=== PATIENT | male | born 1950 | race American Indian/Alaskan Native ===

== ENCOUNTER 2019-10-05 16:57 | Observation (INO) | payer MEDICARE, OTHER ==
--- NOTE | 2019-10-05 19:08 | Event Note ---
ED Screening Note Date of service: 10/05/19 Time: 19:04 ED Screening Note: 69 yo male presents to ED cc of swelling and pain to his feet pt is a pt of the wound clinic at [facility] but states EMS brought him here pt also cc of bleeding and pain to wound This initial assessment/diagnostic orders/clinical plan/treatment(s) is/are subject to change based on patients health status, clinical progression and re- assessment by fellow clinical providers in the ED. Further treatment and workup at subsequent clinical providers discretion. Patient/guardian urged not to elope from the ED as their condition may be serious if not clinically assessed and managed. Initial orders include: main side eval
[2019-10-05 21:00] LABS: BUN/Creatinine Ratio 13; Blood Urea Nitrogen 106 mg/dL (9-20); Calcium 7.4 mg/dL (8.4-10.2); Hemolysis Index 210
[2019-10-05] MEDS ORDERED: INSULIN REGULAR, HUMAN 100 UNITS/1 ML IV ONE (21:24)
[2019-10-05] MEDS ORDERED: SODIUM POLYSTYRENE 15 GM/60 ML ORAL LIQD PO ONE (21:25)
[2019-10-05] MEDS ORDERED: ALBUTEROL 2.5 MG/3 ML NEBU IH ONE (21:25)
[2019-10-05] MEDS ORDERED: DEXTROSE 50% IN WATER (25GM) 50 ML SYRINGE IV ONE (21:25)
[2019-10-05 22:13] LABS: Hematocrit 36.7 % (35.5-45.6); Hemoglobin 11.8 gm/dl (11.8-15.2); Mean Corpuscular HGB Conc 32 % (32-34); Mean Corpuscular Volume 100 fl (84-94); Platelet Count 167 K/mm3 (140-440); Red Blood Count 3.66 M/mm3 (3.65-5.03); Red Cell Distribution Width 16.1 % (13.2-15.2)
[2019-10-05] MEDS ORDERED: CALCIUM GLUCONATE 1,000 MG in SODIUM CHLORIDE 0.9% 100 ML IV ONE (22:25)
[2019-10-05 23:05] LABS: Basophils % (Manual) 0 % (0.0-1.8); Eosinophils % (Manual) 0 % (0.0-4.3); Large Platelets 1+; Macrocytosis 1+; Total Cells Counted 100
[2019-10-05 23:06] LABS: Platelet Estimate Consistent w Auto; Poikilocytosis 1+
[2019-10-06] MEDS ORDERED: SODIUM POLYSTYRENE 15 GM/60 ML ORAL LIQD PO ONE (00:12)
--- NOTE | 2019-10-06 00:22 | Emergency Department Report ---
ED General Adult HPI - General Chief complaint: Extremity Problem,Nontraumatic Stated complaint: GENERAL ILLNESS Time Seen by Provider: 10/05/19 20:26 Source: patient, EMS Mode of arrival: Wheelchair Limitations: No Limitations - History of Present Illness Initial comments: 69-year-old male with ESRD presents to ED for evaluation. Patient states he was supposed to go to wound clinic today following his dialysis appointment. However, patient states he did not go to dialysis this morning because it was too cold outside. Patient states he then called 911 to take him to [facility] which is where his wound care clinic is located. He was informed that they could not take him to a clinic so he was brought to our ER. Patient states he had blisters rupture on the top of both of his feet, and has been seen in wound care for the last 4 weeks. He states he is currently on antibiotics, however, he does not know the name of the medication. He is also requesting dialysis since he missed it today. Patient is on schedule. He denies any shortness of breath. States he was last dialyzed 2 days ago. Patient denies any fever, increased foot pain, increased drainage from feet. -: This evening Location: left, right, lower extremity Radiation: non-radiation Consistency: constant Improves with: none Worsens with: none Associated Symptoms: denies: fever/chills, nausea/vomiting, shortness of breath - Related Data Allergies Allergy/AdvReac Type Severity Reaction Status Date / Time No Known Allergies Allergy Unverified 10/05/19 16:59 ED Review of Systems ROS: Stated complaint: GENERAL ILLNESS Other details as noted in HPI Comment: All other systems reviewed and negative Constitutional: denies: chills, fever Respiratory: denies: shortness of breath Gastrointestinal: denies: nausea, vomiting ED Past Medical Hx - Past Medical History Previous Medical History?: Yes Hx Hypertension: Yes Hx Diabetes: Yes Additional medical history: Renal Failure - Social History Smoking Status: Never Smoker Substance Use Type: None ED Physical Exam - General Limitations: No Limitations General appearance: alert, in no apparent distress - Head Head exam: Present: atraumatic, normocephalic - Eye Eye exam: Present: normal appearance - ENT ENT exam: Present: mucous membranes moist - Neck Neck exam: Present: normal inspection - Respiratory Respiratory exam: Present: normal lung sounds bilaterally. Absent: respiratory distress - Cardiovascular Cardiovascular Exam: Present: regular rate, normal rhythm - GI/Abdominal GI/Abdominal exam: Present: soft. Absent: distended, tenderness - Extremities Exam Extremities exam: Present: other (open wounds to dorsal aspect of bilateral feet, no purulent discharge, pink tissue present) ED Course Vital Signs 10/05/19 10/05/19 10/06/19 19:01 23:33 01:59 Temperature 97.3 F L 97.6 F Pulse Rate 83 89 66 Respiratory 17 18 18 Rate Blood Pressure 148/89 Blood Pressure 155/97 140/94 [Right] O2 Sat by Pulse 95 99 96 Oximetry - Consultations Consultation #1: 10/06/19 00:15 Spoke w/ Dr Villalba. Will dialyze in the morning ED Medical Decision Making - Lab Data Result diagrams: 10/05/19 21:44 10/05/19 22:00 - EKG Data -: EKG Interpreted by Ar EKG shows normal: sinus rhythm, intervals, QRS complexes Rate: normal (rate 79) - EKG Data Interpretation: other (peaked T waves present; lateral T wave inversions) - Medical Decision Making 69-year-old male with end-stage renal disease, open wounds to bilateral feet. Patient has been under the care of the wound clinic for the last 4 weeks. States he has is currently on antibiotics. Patient is afebrile, wbc's are normal. Potassium is elevated at 6.4. EKG shows peak T waves. Patient is in no respiratory distress. O2 sats are normal. Patient was given albuterol, insulin, D50, Kayexalate, calcium gluconate. Spoke with the sales administration specialist, will dialyze patient in the morning. Patient will be admitted by the hospitalist. - Differential Diagnosis hyperkalemia Critical Care Time: Yes Critical care time in (mins) excluding proc time.: 35 Critical care attestation.: If time is entered above; I have spent that time in minutes in the direct care of this critically ill patient, excluding procedure time. Critical Care Time: 35 minutes ED Disposition Clinical Impression: ESRD needing dialysis, Hyperkalemia Disposition: OP ADMIT IP TO THIS HOSP Is pt being admited?: Yes Condition: Stable Time of Disposition: 00:29
[2019-10-06] MEDS ORDERED: ONDANSETRON 4 MG/2 ML INJ IV PRN (02:11)
[2019-10-06] MEDS ORDERED: ACETAMINOPHEN 325 MG TAB PO PRN (02:11)
[2019-10-06] MEDS ORDERED: MAGNESIUM HYDROXIDE (MOM) ORAL LIQD UDC PO PRN (02:11)
--- NOTE | 2019-10-06 02:55 | History and Physical Report ---
History of Present Illness Date of examination: 10/06/19 Date of admission: 10/06/19 00:56 Chief complaint: Patient needs dialysis Bilateral feet ulcers History of present illness: 69-year-old -[place] male with known history of end-stage renal disease on dialysis are Friday and Friday. He had missed his dialysis on Friday and indicates that he may need dialysis today. He also has bilateral foot ulcers for which she goes to wound care clinic. He denies any fever no chills, no chest pain no shortness of breath. Upon arrival in the emergency room his work-up was significant for hyperkalemia with potassium of about 6. His EKG showed some T wave changes. Patient was subsequently given IV dextrose, insulin injection, calcium gluconate, Kayexalate in the ER. Audit Reviewer on-call was notified by the ER physician and patient will be sc heduled for dialysis in the a.m. Past History Past Medical History: ESRD, hypertension Social history: no significant social history Family history: no significant family history Medications and Allergies Allergies Allergy/AdvReac Type Severity Reaction Status Date / Time No Known Allergies Allergy Unverified 10/05/19 16:59 Active Meds: Active Medications Acetaminophen (Tylenol) 650 mg PO Q4H PRN PRN Reason: Pain MILD(1-3)/Fever >100.5/VELAZQUEZ Magnesium Hydroxide (Milk Of Magnesia) 30 ml PO Q4H PRN PRN Reason: Constipation Morphine Sulfate (Morphine) 2 mg IV Q4H PRN PRN Reason: Pain, Moderate (4-6) Ondansetron HCl (Zofran) 4 mg IV Q8H PRN PRN Reason: Nausea And Vomiting Sodium Chloride (Sodium Chloride Flush Syringe 10 Ml) 10 ml IV BID MED Sodium Chloride (Sodium Chloride Flush Syringe 10 Ml) 10 ml IV PRN PRN PRN Reason: LINE FLUSH Review of Systems Integumentary: wounds (Bilateral foot wounds) Exam - Constitutional Vitals: Temp Pulse Resp BP Pulse Ox 97.6 F 66 18 140/94 96 10/05/19 23:33 10/06/19 01:59 10/06/19 01:59 10/06/19 01:59 10/06/19 01:59 General appearance: Present: no acute distress - EENT Eyes: Present: PERRL, EOM intact ENT: hearing intact, clear oral mucosa, dentition normal - Neck Neck: Present: supple, normal ROM - Respiratory Respiratory effort: normal Respiratory: bilateral: CTA - Cardiovascular Rhythm: regular Heart Sounds: Present: S1 & S2 - Extremities Extremities: pulses intact, Full ROM Extremity abnormal: edema (1+ bilateral lower extremity edema), ulceration (Ulceration on both feet), other (Chronic venous status changes) - Abdominal General gastrointestinal: Present: soft, non-tender, non-distended - Integumentary Integumentary: Present: clear, warm, dry - Musculoskeletal Musculoskeletal: strength equal bilaterally - Psychiatric Psychiatric: appropriate mood/affect, no intact judgment & insight, cooperative - Neurologic Neurologic: CNII-XII intact, moves all extremities Results - Labs CBC & Chem 7: 10/05/19 21:44 10/06/19 03:49 Labs: Abnormal lab results 10/05/19 10/05/19 10/05/19 Range/Units 19:46 21:44 22:00 MCV 100 H (84-94) fl RDW 16.1 H (13.2-15.2) % Seg Neuts % (Manual) 91.0 H (40.0-70.0) % Lymphocytes % (Manual) 1.0 L (13.4-35.0) % Monocytes % (Manual) 8.0 H (0.0-7.3) % Seg Neutrophils # Man 8.4 H (1.8-7.7) K/mm3 Lymphocytes # (Manual) 0.1 L (1.2-5.4) K/mm3 Sodium 135 L (137-145) mmol/L Potassium 6.4 H* (3.6-5.0) mmol/L Chloride 91.5 L (98-107) mmol/L Carbon Dioxide 15 L (22-30) mmol/L BUN 106 H (9-20) mg/dL Creatinine 8.4 H (0.8-1.5) mg/dL Glucose 305 H (75-100) mg/dL Calcium 7.4 L (8.4-10.2) mg/dL Assessment and Plan - Patient Problems (1) ESRD needing dialysis Current Visit: Yes Status: Acute Plan to address problem: Patient gets dialysis on Tuesdays and Saturdays. (2) Hyperkalemia Current Visit: Yes Status: Acute Plan to address problem: He has had insulin and glucose. Kayexalate, calcium gluconate. We will monitor EKG and also monitor potassium levels. (3) Hypertension Current Visit: Yes Status: Acute Plan to address problem: Blood pressure stable. Will monitor vital signs closely. (4) Full code status Current Visit: Yes Status: Acute
[2019-10-06 05:28] LABS: Albumin 3.4 g/dL (3.9-5); Calcium 7.8 mg/dL (8.4-10.2)
[2019-10-06] MEDS: MORPHINE 2 MG/1 ML INJ IV PRN ×2 (05:30→21:20)
[2019-10-06] MEDS ORDERED: VANCOMYCIN 1,500 MG in SODIUM CHLORIDE 0.9% 500 ML 500 ML IV ONE (06:30)
[2019-10-06] MEDS ORDERED: VANCOMYCIN PHARMACY TO DOSE IV SCH (07:00)
[2019-10-06] MEDS ORDERED: SODIUM CHLORIDE 0.9% 100 ML IV PRN (07:24)
--- NOTE | 2019-10-06 10:07 | Consultation ---
History of Present Illness - Reason for Consult Consult date: 10/06/19 end stage renal disease, hyperkalemia - History of Present Illness The patient is a 69 YO AAM with history significant for HTN and ESRD on hemodialysis (TTS) who presented to [facility] ED for evaluation of LE wounds. Patient is a very poor historian and the information is sparse. Patient states he had blisters over both legs which ruptured and causing pain. He acknowledges increased pain and increased drainage from feet. He has been seen in wound care for the last 4 weeks. He denies cp, sob, N, V, D, abd pain, fever or chills. Patient was last dialyzed on 09/25/19. Labs significant for K 6.4. Nephrology was consulted for further evaluation. Past History Past Medical History: ESRD, hypertension Social history: no significant social history Family history: no significant family history Medications and Allergies Allergies Allergy/AdvReac Type Severity Reaction Status Date / Time No Known Allergies Allergy Unverified 10/05/19 16:59 Active Meds: Active Medications Acetaminophen (Tylenol) 650 mg PO Q4H PRN PRN Reason: Pain MILD(1-3)/Fever >100.5/VELAZQUEZ Sodium Chloride (Nacl 0.9%) 100 mls @ 999 mls/hr IV MELISSA PRN PRN Reason: Hypotension Magnesium Hydroxide (Milk Of Magnesia) 30 ml PO Q4H PRN PRN Reason: Constipation Morphine Sulfate (Morphine) 2 mg IV Q4H PRN PRN Reason: Pain, Moderate (4-6) Last Admin: 10/06/19 05:30 Dose: 2 mg Documented by: Ondansetron HCl (Zofran) 4 mg IV Q8H PRN PRN Reason: Nausea And Vomiting Sodium Chloride (Sodium Chloride Flush Syringe 10 Ml) 10 ml IV BID MED Last Admin: 10/06/19 09:54 Dose: 10 ml Documented by: Sodium Chloride (Sodium Chloride Flush Syringe 10 Ml) 10 ml IV PRN PRN PRN Reason: LINE FLUSH Review of Systems ROS unobtainable: due to mental status (please see HPI) Exam - Vital Signs Vital signs: Vital Signs Temp Pulse Resp BP Pulse Ox 97.3 F L 83 17 148/89 95 10/05/19 19:01 10/05/19 19:01 10/05/19 19:01 10/05/19 19:01 10/05/19 19:01 - General Appearance General appearance: well-developed, well-nourished, appears stated age, other (no distress, R IJ tunnel catheter) EENT: ATNC, PERRL, hearing intact, vision intact Neck: Present: neck supple, trachea midline Respiratory: Clear to Ascultation Heart: regular, S1S2, no murmurs Gastrointestinal: Present: normoactive bowel sounds. Absent: tenderness, distended Integumentary: ulcer (both LEs with weeping) Neurologic: no focal deficit, no asterixis, disoriented Musculoskeletal: Present: other (trace LE edema noted) Psychiatric: cooperative Results - Lab Results 10/05/19 21:44 10/06/19 03:49 Most recent lab results Calcium 7.8 mg/dL (8.4-10.2) L 10/06/19 03:49 Assessment and Plan 1. ESRD: Patient was admitted after he missed 4 sessions of hemodialysis. Hemodialysis today. Continue hemodialysis three times a week, TTS schedule. Per patient he has been on hemodialysis for the past year. He dont want to get AVF or AVG. 2. FEN: Hyperkalemia, HD today. Metabolic acidosis, HD today. Renal diet. Monitor. 3. Bilateral LE wound. 4. HTN: Not on any WON meds. 5. Medical non-compliance.
[2019-10-06 11:12] LABS: Hepatitis B Surface Antigen Non-Reactive (Negative); Hepatitis C Virus Antibody Non-Reactive (NonReactive)
--- NOTE | 2019-10-06 17:42 | Event Note ---
Date: 10/06/19 Patient was admitted early this morning with worsening shortness of breath and missed hemodialysis Evaluated by nephrology patient underwent hemodialysis, patient has multiple blisters lower extremities Wound care consulted, agree with the current management, patient is stable to be transferred out of telemetry To medical floor. Disposition; discharge home when medically stable, and when cleared by nephrology
[2019-10-06] MEDS: INSULIN LISPRO 100 UNIT/ML SUB-Q SCH (21:20)
[2019-10-07 06:14] LABS: Basophils # (Auto) 0.1 K/mm3 (0.0-0.1); Basophils % (Auto) 0.9 % (0.0-1.8); Eosinophils # (Auto) 0.1 K/mm3 (0.0-0.4); Eosinophils % (Auto) 0.9 % (0.0-4.3); Hematocrit 29.4 % (35.5-45.6); Lymphocytes # (Auto) 0.7 K/mm3 (1.2-5.4); Lymphocytes % (Auto) 8.7 % (13.4-35.0); Mean Corpuscular HGB Conc 34 % (32-34); Mean Corpuscular Volume 97 fl (84-94); Monocytes % (Auto) 12.3 % (0.0-7.3); Platelet Count 149 K/mm3 (140-440); Red Blood Count 3.03 M/mm3 (3.65-5.03); Red Cell Distribution Width 15.8 % (13.2-15.2)
[2019-10-07 06:15] LABS: INR 1.13 (0.87-1.13)
[2019-10-07 06:16] LABS: Partial Thromboplastin Time 36.2 Sec. (24.2-36.6)
[2019-10-07 06:24] LABS: Calcium 8.2 mg/dL (8.4-10.2)
[2019-10-07] MEDS: INSULIN LISPRO 100 UNIT/ML SUB-Q SCH ×3 (07:39→17:30)
--- NOTE | 2019-10-07 08:07 | Progress Note ---
Assessment and Plan 1. ESRD: Patient was admitted after he missed 4 sessions of hemodialysis. Continue hemodialysis three times a week, TTS schedule. HD today. Per patient he has been on hemodialysis for the past year. He dont want to get AVF or AVG. 2. FEN: Hyperkalemia, improved. Metabolic acidosis, improved. Renal diet. Monitor. 3. Bilateral LE wound. 4. HTN: Not on any WON meds. 5. Medical non-compliance. Examination: General appearance: well-developed, well-nourished, appears stated age, no distress, HEENT: ATNC, VINOD, hearing intact, vision intact Neck: neck supple, trachea midline Respiratory: Clear to Ascultation Heart: regular, S1S2, no murmurs Gastrointestinal: normoactive bowel sounds, not tender, not distended Integumentary: ulcer with weeping over both LEs Neurologic: no focal deficit, no asterixis, disoriented Ext: trace LE edema noted Hemodialysis access: R IJ tunnel catheter Subjective Date of service: 10/07/19 Interval history: Patient was seen and examined at the bedside. Doing ok. Objective - Vital Signs Vital signs: Vital Signs - 12hr 10/06/19 10/06/19 10/06/19 21:20 21:22 21:50 Temperature Pulse Rate Pulse Rate [ Apical] Respiratory 18 18 Rate Respiratory 18 Rate [Bilateral Ankle] Blood Pressure O2 Sat by Pulse Oximetry 10/06/19 10/07/19 10/07/19 22:15 03:51 03:54 Temperature 98.3 F Pulse Rate 54 L Pulse Rate [ 92 H Apical] Respiratory 18 20 Rate Respiratory Rate [Bilateral Ankle] Blood Pressure 113/73 O2 Sat by Pulse 100 98 Oximetry 10/07/19 07:18 Temperature 98.7 F Pulse Rate 82 Pulse Rate [ Apical] Respiratory 20 Rate Respiratory Rate [Bilateral Ankle] Blood Pressure 104/68 O2 Sat by Pulse 100 Oximetry - Lab 10/07/19 05:30 10/07/19 05:30 Most recent lab results Calcium 8.2 mg/dL (8.4-10.2) L 10/07/19 05:30 Medications & Allergies - Medications Allergies/Adverse Reactions: Allergies No Known Allergies Allergy (Unverified 10/05/19 16:59) Active Medications: Generic Name Dose Route Start Last Admin Trade Name Freq PRN Reason Stop Dose Admin Acetaminophen 650 mg 10/06/19 02:11 Tylenol PO Q4H PRN Pain MILD(1-3)/Fever >100.5/VELAZQUEZ Sodium Chloride 100 mls @ 999 mls/hr 10/06/19 07:24 Nacl 0.9% IV MELISSA PRN Hypotension Insulin Human Lispro 0 unit 10/06/19 22:00 10/07/19 07:39 Humalog SUB-Q Not Given ACHS [facility] Protocol Magnesium Hydroxide 30 ml 10/06/19 02:11 Milk Of Magnesia PO Q4H PRN Constipation Morphine Sulfate 2 mg 10/06/19 02:11 10/06/19 21:20 Morphine IV 2 mg Q4H PRN Administration Pain, Moderate (4-6) Ondansetron HCl 4 mg 10/06/19 02:11 Zofran IV Q8H PRN Nausea And Vomiting Sodium Chloride 10 ml 10/06/19 10:00 10/06/19 21:21 Sodium Chloride Flush Syringe 10 Ml IV 10 ml BID MED Administration Sodium Chloride 10 ml 10/06/19 02:11 Sodium Chloride Flush Syringe 10 Ml IV PRN PRN LINE FLUSH
[2019-10-07] MEDS ORDERED: EPOETIN ALFA 10,000 UNIT/1 ML INJ SUB-Q PRN (09:00)
[2019-10-07] MEDS ORDERED: SODIUM CHLORIDE 0.9% 100 ML IV PRN (09:00)
[2019-10-07] MEDS ORDERED: HEPARIN 10,000 UNITS/10 ML VIAL IV PRN (09:00)
[2019-10-07] MEDS ORDERED: EPOETIN ALFA 10,000 UNIT/1 ML INJ ONE (14:00)
[2019-10-07] MEDS ORDERED: HEPARIN 10,000 UNITS/10 ML VIAL ONE (14:00)
[2019-10-07] MEDS ORDERED: SODIUM CHLORIDE*PRIMING MACHINE ONLY FOR DIALYSIS MC ONE (14:01)
--- NOTE | 2019-10-07 15:48 | Discharge Summary ---
Providers - Providers Date of Admission: 10/06/19 00:56 Date of discharge: 10/07/19 Attending physician: SHERRELL BAINS 10/06/19 00:15 Consult to Physician [CONS] Stat Comment: Consulting Provider: BRIANNA CLEMONS Physician Instructions: Reason For Exam: hyperkalemia 10/06/19 02:22 Consult to Wound/ET Nurse [CONS] Routine Reason For Exam: wound eval Primary care physician: CODING COMPLIANCE AUDITOR Hospitalization Reason for admission: Missed HD,Tong LE chronic ulcers Condition: Stable Procedures: HD per schedule Hospital course: 69-year-old -[place] male with known history of end-stage renal disease on dialysis are Friday and Friday. He had missed his dialysis on Friday and indicates that he may need dialysis today. He also has bilateral foot ulcers for which she goes to wound care clinic. He denies any fever no chills, no chest pain no shortness of breath. Upon arrival in the emergency room his work-up was significant for hyperkalemia with potassium of about 6. His EKG showed some T wave changes. Patient was subsequently given IV dextrose, insulin injection, calcium gluconate, Kayexalate in the ER. -- ESRD needing dialysis Current Visit: Yes Status: Acute Patient gets dialysis on Tuesdays and Saturdays. --Hyperkalemia Current Visit: Yes Status: Acute He has had insulin and glucose. Kayexalate, calcium gluconate. We will monitor EKG and also monitor potassium levels. --Hypertension Current Visit: Yes Status: Acute Blood pressure stable. Will monitor vital signs closely. --Type 2 DM : Accu checks,SSC,ADA diet and insulin as needed --Tong LE chronic ulcers-- Full code status Current Visit: Yes Status: Acute Woundcare,pain management. Stable at discharge. Patient takes multiple home medications. Advised to cont all the home meds,Check with PMD F/U renal and HD per schedule Disposition: DC-01 TO HOME OR SELFCARE Time spent for discharge: 33 min Core Measure Documentation - Palliative Care Palliative Care/ Comfort Measures: Not Applicable - Core Measures Any of the following diagnoses?: none Exam - Constitutional Vitals: Temp Pulse Resp BP Pulse Ox 98.7 F 92 H 20 144/81 100 10/07/19 11:36 10/07/19 14:45 10/07/19 11:36 10/07/19 14:45 10/07/19 07:18 General appearance: Present: no acute distress, well-nourished - EENT Eyes: Present: PERRL, EOM intact - Neck Neck: Present: supple, normal ROM - Respiratory Respiratory effort: normal Respiratory: bilateral: diminished, negative: rales, rhonchi, wheezing - Cardiovascular Rhythm: regular Heart Sounds: Present: S1 & S2 - Extremities Extremities: no ischemia, No edema - Abdominal General gastrointestinal: Present: soft, non-tender, non-distended - Integumentary Integumentary: Present: clear, warm - Musculoskeletal Musculoskeletal: strength equal bilaterally - Psychiatric Psychiatric: appropriate mood/affect, cooperative Plan Activity: advance as tolerated, fall precautions Diet: renal Additional Instructions: f/u Renal,HD per schedule. Continue all the home meds as before, check with PMD Follow up with: LISHA WEEMS MD [Primary Care Provider] - 3-5 Days BRIANNA CLEMONS MD [Staff Physician] - 7 Days
[2019-10-07 20:42] VITALS: BP 136/86
== END 2019-10-07 20:15 | disposition home or self-care (01) ==
LOC: ED 16:57 → 4A 10-06 00:56 → 2B-ACE 10-06 23:10
PROVIDERS: ADMIT Internal Medicine Geriatric Medicine; ATTEND Internal Medicine
DX: I12.0 Hypertensive chronic kidney disease with stage 5 chronic kidney disease or end stage renal disease (principal); N18.6 End stage renal disease; E11.22 Type 2 diabetes mellitus with diabetic chronic kidney disease; E87.5 Hyperkalemia; L97.529 Non-pressure chronic ulcer of other part of left foot with unspecified severity; L97.519 Non-pressure chronic ulcer of other part of right foot with unspecified severity; Z99.2 Dependence on renal dialysis
CPT/HCPCS: 36415; 80048; 80053; 80074; 82962; 84132; 85007; 85025; 85610; 85730; 93005; 93010; 96365; 96366; 96367; 96372; 96375; 96376; 99291; G0378; J0610; J0885; J1644; J2270; J3370; J7030; J7040; G0257; J1815